=== PATIENT | male | born 1965 | race Caucasian/White ===

== ENCOUNTER 2025-07-04 18:15 | Emergency (ER) | payer OTHER, SELFPAY ==
[2025-07-04 18:17] VITALS: BP 164/86; PULSE 75; RESP 18; TEMP 36.2; O2SAT 99
--- NOTE | 2025-07-04 18:37 | EDS_ITS ---
HPI History of Present Illness Chief Complaint: Lower Extremity Injury Narrative Narrative: Patient is a 59-year-old male with no known significant past medical history who presents to the emergency department the chief complaint of right leg swelling and redness. Patient states that started few days ago he noted he had some discomfort in the back of his right leg and then this progressively worsened. He states that he went to urgent care and they advised him to go to the emergency department for which he went to [facility] and he states that he was displeased with his care there he states that the lady doctor walked in and said that this was not a blood clot and that they did not have vascular there therefore he was sent home and had an ultrasound done today. 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 States that he saw his PCP today and notes that they were still very concerned about a blood clot therefore they told him to go to the ER here to be evaluated. Patient denies any recent travels denies any history of blood clots denies any injuries or trauma. [facility] Medical History no medical history Home Medications Medication Instructions Recorded Last Taken Type doxycycline hyclate 100 mg capsule 100 mg PO BID 7 day s #14 caps 07/04/25 Unknown Rx Allergy/AdvReac Type Severity Reaction Status Date / Time No Known Allergies Allergy Verified 07/04/25 18:17 Family History no significant family his Surgical History no surgical history Social History Smoking Status: Never smoker alcohol intake: never ROS ROS ED ROS Narrative Constitutional: Denies any fevers or chills Cardiovascular: Denies chest pain Respiratory: Denies shortness of breath Neurological: Denies any numbness, weakness, tingling Musculoskeletal: Complains of right calf redness and swelling as noted above Skin: Complains of redness to the right calf as noted above EXAM Physical Exam Narrative Exam Narrative: General: Patient is lying bed rest comfortably not appear to be in acute distress Head: Atraumatic, normocephalic Eyes: PERRL bilaterally, EOMI bilateral no conjunctival injection noted Neck: Soft, supple, trachea midline Cardiovascular: Regular rate Musculoskeletal: Right lower extremity compartments are soft and compressible there is swelling to the right calf Extremities: DP pulses +2/4 in the bilateral lower extremities, +5/5 strength noted in the bilateral upper and lower extremities Neurological: Patient following commands knew that he was at [facility] years 2024 Skin: Patient has erythema noted to the posterior calf on the right side no petechia no purpura no sloughing of the skin noted this blanches Const Vital Signs: 07/04/25 18:17 Temperature 97.1 F L Temperature Source Temporal Pulse Rate 75 Respiratory Rate 18 Blood Pressure 164/86 H Blood Pressure Mean 112 Pulse Ox 99 Oxygen Delivery Method Room Air MDM MDM MDM Narrative Medical decision making narrative: Patient is a 59-year-old male who presented to the emergency department chief complaint of right calf pain and swelling as well as redness. On the differential diagnose includes but not limited to ruptured Acosta's cyst, DVT, superficial venous thrombosis, cellulitis. Given the patient just had his ultrasound performed today I discussed with them that do not feel the need to repeat this. I advised him to keep a close eye on this I outlined this in skin marker and gave him a dose of doxycycline here he will be given a prescription for this. He is advised to keep a close eye on this and if this worsens he should return to the emergency department. He was advised to ice, elevate and follow-up with his doctor in outpatient and as well. They are agreeable this plan all question concerns answered is discharged home in stable condition. Discharge Plan Triage Chief Complaint: Lower Extremity Injury ED Provider: Etienne Kelly Dx/Rx/DC Orders Clinical Impression: Right leg swelling, Cellulitis of leg, right, Leg pain, right Prescriptions: New doxycycline hyclate 100 mg capsule 100 mg PO BID 7 Days Qty: 14 0RF Activity Restrictions/Additional Instructions: Take antibiotics as prescribed. Follow-up with your doctor in the outpatient setting. If your redness extends outside of the lines that I clara here in the emergency department as we discussed you should return to the emergency department. Rotate Tylenol and ibuprofen [id number] for pain control when you do this you can take something for 3 hours for pain max dose of Tylenol in 24 hours 4000 mg max dose of ibuprofen in 24 hours 32 mg Print Language: Luxembourgish Disposition Disposition: Home, Self Care
[2025-07-04 18:48] VITALS: BP 130/78; PULSE 75; RESP 18; TEMP 36.2; O2SAT 99
== END 2025-07-04 18:59 | disposition home or self-care (01) ==
LOC: ED 18:59
PROVIDERS: Emergency Provider Emergency Medicine; PCP Nurse Practitioner Family; Visit Provider Emergency Medicine
DX: L03.115 Cellulitis of right lower limb (principal); M79.604 Pain in right leg
CPT/HCPCS: 99282